=== PATIENT | female | born 1960 | race Caucasian/White ===

== ENCOUNTER → 2017-04-09 | Outpatient (CLI) | payer MEDICARE ==
--- NOTE | 2017-04-13 08:37 | RADIOLOGY REPORT PS360 ---
DIG MAMM-SCREEN [facility] W/CAD CAD Screening COMPARISON: Digital mammograms 12/18/2015 and 12/06/2014 INDICATION: There is a history of breast cancer patient's 2 maternal aunts diagnosed after menopause. TECHNIQUE: Standard CC and MLO images were obtained. R2 CAD reviewed. FINDINGS: Moderate scattered fibroglandular densities are seen throughout both breasts. The asymmetric density in the left breast seen on previous exams is not seen and was noted to be a cystic lesion on ultrasound and probably has been either aspirated or decompressed. There is no suspicious lesion in either breast and no suspicious microcalcifications. There is a benign-appearing calcination right breast. IMPRESSION: Fibrofatty parenchyma with no suspicious lesion seen recommend yearly follow-up BI-RADS CATEGORY: 2_Benign RECOMMENDED FOLLOWUP: 12M 12 MONTH FOLLOW-UP (A letter has been sent to the patient regarding results of the study.)
== END ==
LOC: RAD 01-28 16:00
DX: Z12.31 Encounter for screening mammogram for malignant neoplasm of breast (principal)